=== PATIENT | female | born 1955 | race Caucasian/White ===

== ENCOUNTER → 2020-05-13 | Outpatient (CLI) | payer MEDICARE ==
--- NOTE | 2020-05-13 16:03 | XR ---
Left foot HISTORY: Heel pain 3 views the left foot There is a hallux valgus deformity, degenerative change at the first metatarsophalangeal joint. Some osteoarthritic changes are also present at the tarsometatarsal joints, second metatarsophalangeal garrett nt. There is lateral subluxation at the possible interphalangeal joint of the fifth digit of the left foot. There is a plantar calcaneal spur. Spurring and loss of joint space at the tibiotalar joint al so noted. IMPRESSION: Plantar calcaneal spur. Osteoarthritis. Lateral subluxation proximal interphalangeal join t fifth digit and additional findings above.
== END | disposition home or self-care (01) ==
LOC: RADXRMAIN 15:11
PROVIDERS: ATTEND Nurse Practitioner Women's Health
DX: M77.32 Calcaneal spur, left foot (principal); M19.072 Primary osteoarthritis, left ankle and foot; M79.672 Pain in left foot

== ENCOUNTER 2021-02-16 08:29 | Day surgery (SDC) | payer MEDICARE ==
[2021-02-12 17:33] VITALS: BMI 22.8
[~2021-02-16 08:29] MED LIST: LACTATED RINGERS 1,000 ML IV SCH; LIDOCAINE 1% (10MG/ML) FOR IV START INTRADERMA PRN
[2021-02-16 08:53] VITALS: TEMP 98
[2021-02-16] MEDS ORDERED: PROPOFOL 10 MG/ML 20 ML VIAL IV ONE (09:44)
[2021-02-16] MEDS ORDERED: LIDOCAINE 1% INJ 10MG/ML (20 ML MDV) ONE (09:44)
--- NOTE | 2021-02-16 09:49 | P.GSHP ---
History of Present Illness H&P Date: 02/16/21 Chief Complaint: Colon cancer screening Patient today for colonoscopy. She's never had one done. Father has history of colon cancer. No bowel complaints. Past Medical History Past Medical History: Hyperlipidemia, Hypertension, Seizure Disorder, Skin Disorder Additional Past Medical History / Comment(s): Seizures as (was a twin). Eczema. Vertigo History of Any Multi-Drug Resistant Organisms: None Reported Past Surgical History: Hysterectomy, Orthopedic Surgery Additional Past Surgical History / Comment(s): Eye muscle as child. Bunionectomy Past Anesthesia/Blood Transfusion Reactions: No Reported Reaction Smoking Status: Never smoker - Past Family History Father Family Medical History: Cancer Additional Family Medical History / Comment(s): colon, throat cancer Mother Family Medical History: Cancer, Deep Vein Thrombosis (DVT) Additional Family Medical History / Comment(s): breast cancer w/ mets. Hx DVT R/T injury Medications and Allergies Home Medications Medication Instructions Recorded Confirmed Type Atorvastatin Calcium [Lipitor] 20 mg PO HS 02/12/21 02/12/21 History Calcium Carbonate/Vitamin D3 1 each PO DAILY 02/12/21 02/12/21 History [Calcium 600-Vit D3 10 mcg (400 Iu)] Fish Oil/Dha/Epa [Fish Oil 1,200 1 each PO DAILY 02/12/21 02/12/21 History mg Fish Oil] Turmeric Root Extract [Turmeric] 1,000 mg PO DAILY 02/12/21 02/12/21 History lisinopriL [Zestril] 20 mg PO DAILY 02/12/21 02/16/21 History Allergies Allergy/AdvReac Type Severity Reaction Status Date / Time morphine Allergy Unknown Verified 02/16/21 08:42 Penicillins Allergy Anaphylaxis Verified 02/16/21 08:42 poison sulema extract Allergy Rash/Hives Verified 02/16/21 08:42 poison oak extract Allergy Rash/Hives Verified 02/16/21 08:42 Surgical - Exam Vital Signs Temp Pulse Resp BP Pulse Ox 98 F 72 16 121/79 97 02/16/21 08:46 02/16/21 08:46 02/16/21 08:46 02/16/21 08:46 02/16/21 08:46 Physical exam: General: Well-developed, well-nourished HEENT: Normocephalic, sclerae nonicteric Abdomen: Nontender, nondistended Extremities: No edema Neuro: Alert and oriented Assessment and Plan (1) Colon cancer screening Narrative/Plan: Will proceed with colonoscopy Current Visit: Yes Status: Acute Code(s): Z12.11 - ENCOUNTER FOR SCREENING FOR MALIGNANT NEOPLASM OF COLON SNOMED Code(s): 586037170
--- NOTE | 2021-02-16 10:08 | P.PCN ---
Date of Procedure: 02/16/21 Procedure(s) Performed: PREOPERATIVE DIAGNOSIS: Colon cancer screening, family history in father POSTOPERATIVE DIAGNOSIS: Diverticulosis PROCEDURE: Colonoscopy ANESTHESIA: MAC SURGEON: Morris Huitron M.D. SPECIMENS: None ENDOSCOPIC PROCEDURE: The patient was placed on the endoscopy table in the left decubitus position. The Olympus colonoscope was inserted into the anus and passed under direct visualization to the base of the cecum. The appendiceal orifice was visualized. From that point the scope was slowly withdrawn inspecting all surfaces carefully. There were no neoplastic inflammatory or polypoid lesions throughout the cecum, ascending, transverse, descending, sigmoid and rectum. There was moderate left-sided diverticulosis noted. Digital rectal examination was normal. The patient was taken to the recovery room in stable condition per anesthesia guidelines. RECOMMENDATIONS: Resume diet. Follow colonoscopy 5 years.
[2021-02-16 10:17] VITALS: BP 117/71; PULSE 65; RESP 18
== END 2021-02-16 10:48 | disposition home or self-care (01) ==
LOC: ORWHC2ENDO 08:29
PROVIDERS: ATTEND Surgery
DX: Z12.11 Encounter for screening for malignant neoplasm of colon (principal); Z80.0 Family history of malignant neoplasm of digestive organs; K57.30 Diverticulosis of large intestine without perforation or abscess without bleeding; E78.5 Hyperlipidemia, unspecified; I10 Essential (primary) hypertension; L30.9 Dermatitis, unspecified; R42 Dizziness and giddiness; Z90.710 Acquired absence of both cervix and uterus; Z98.890 Other specified postprocedural states; Z80.3 Family history of malignant neoplasm of breast; Z82.49 Family history of ischemic heart disease and other diseases of the circulatory system; Z79.899 Other long term (current) drug therapy; Z88.5 Allergy status to narcotic agent; Z88.0 Allergy status to penicillin; Z91.048 Other nonmedicinal substance allergy status
CPT/HCPCS: J2001; J2704; G0105

== ENCOUNTER → 2022-02-23 | Outpatient (CLI) | payer MEDICARE ==
[2022-02-23 20:43] LABS: Chol/HDL Ratio 2.95 Ratio; LDL Cholesterol,Calculated 90.5 mg/dL (0.0-131.0); VLDL Calculation 18.58 mg/dL (5.00-40.00)
== END | disposition home or self-care (01) ==
LOC: LABWHC1 10:40
PROVIDERS: ATTEND Family Medicine
DX: E78.00 Pure hypercholesterolemia, unspecified (principal)
CPT/HCPCS: 36415; 80061

== ENCOUNTER → 2023-12-08 | Outpatient (CLI) | payer MEDICARE ==
--- NOTE | 2023-12-09 10:39 | CT ---
EXAMINATION TYPE: CT thoracic spine wo con DATE OF EXAM: 12/08/2023 COMPARISON: 11/08/2021 HISTORY: pain left side costovertebral joint area CT DLP: 511.7 mGycm Automated exposure control for dose reduction was used. Contrast: None Technique: Axial image 3 mm thick sections. Reconstructed images in coronal and sagittal plane. FINDINGS: Vertebral body heights are preserved. Spondylosis with some anterior vertebral body spurring is in th e mid thoracic spine. Degenerative disc changes present through these levels. No spinal canal stenosis is evident. No focal disc herniation or significant disc bulge is evident. T he spinal cord as visualized appears unremarkable. There is a sclerotic area of within the posterior right vertebral body. This was present on the CT ab domen and pelvis of 11/08/2021 and appears stable. No additional suspicious lytic or sclerotic lesion e vident. Other: Note is made of a posterior left 3.9 cm renal cyst. The ascending thoracic aorta is prominent 4.1 cm. Main pulmonary artery bifurcation is 2.7 cm. Some emphysematous change may be present. IMPRESSION: 1. MILD DEGENERATIVE CHANGES THORACIC SPINE. 2. SCLEROTIC LESION WHICH IS NONSPECIFIC IN THE LOWER RIGHT VERTEBRAL BODY. THIS IS STABLE FROM 2021. 3. ASCENDING THORACIC AORTIC ANEURYSM 4.1 CM. 4. LEFT RENAL CYST.
== END | disposition home or self-care (01) ==
LOC: RADCTMAIN 16:37
PROVIDERS: ATTEND Family Medicine
DX: M47.814 Spondylosis without myelopathy or radiculopathy, thoracic region (principal); I71.21 Aneurysm of the ascending aorta, without rupture; N28.1 Cyst of kidney, acquired; Z87.828 Personal history of other (healed) physical injury and trauma
CPT/HCPCS: 72128